=== PATIENT | male | born 1960 | race Caucasian/White ===

== ENCOUNTER → 2017-01-21 | Outpatient (CLI) | payer OTHER ==
--- NOTE | 2017-01-21 15:27 | CT ---
EXAMINATION TYPE: CT chest w con DATE OF EXAM: 01/21/2017 3:06 PM COMPARISON: 10/27/2016 HISTORY: Pt states of follow up for lung nodule. CT DLP: 157.1 mGycm, Automated exposure control for dose reduction was used. CONTRAST: Performed injected with 90 mL of Omnipaque 300. TECHNIQUE: Axial images were obtained at 5 mm thick sections. Reconstructed images are reviewed on [employer] computer in the coronal plane. FINDINGS: Portion of the thyroid visualized is normal. No suspicious lung nodules or focal infiltrates are present. Extensive interstitial changes are present greater in the upper lung ramirez. Thickening of the greater fissure on the right near the posterior medial apex is evident but stable f rom prior study. Previous right middle lobe streak opacity has resolved. The right suprahilar lymph n ode may been interval finding A 1.2 cm right peribronchial lymph node is not excluded. The ascending aorta diameter at the level o f the main pulmonary artery is 3.0 cm. The main pulmonary artery diameter at the bifurcation is 2.5 cm. Coronary artery calcification is present Limited CT sections are obtained through the upper abdomen. Abdomen is essentially unremarkable. IMPRESSIONS: 1. COPD. 2. Stable streak thickening at the superior major fissure on the right. 3. there may be interval development of an enlarged right suprahilar lymph node measuring 1.2 cm.
== END | disposition home or self-care (01) ==
LOC: RADCTMAIN 14:40
PROVIDERS: ATTEND Internal Medicine Critical Care Medicine
DX: J98.4 Other disorders of lung (principal); J44.9 Chronic obstructive pulmonary disease, unspecified
CPT/HCPCS: 71260; Q9967

== ENCOUNTER → 2017-08-26 | Outpatient (CLI) | payer OTHER ==
--- NOTE | 2017-08-26 16:54 | CT ---
EXAMINATION TYPE: CT chest w con DATE OF EXAM: 08/26/2017 COMPARISON: CT chest January 21, 2017 and older studies. PET/CT August 07, 2016. HISTORY: Abnormal findings of lung ramirez CT DLP: 390 mGycm. Automated Exposure Control for Dose Reduction was Utilized. TECHNIQUE: CT scan of the thorax is performed following with IV Contrast, patient injected with 100 ml mL of Omnipaque 300. FINDINGS: LUNGS: Moderate emphysematous change most prominent in the upper lobes is redemonstrated. There is li near scarring or atelectasis in the left lung base just above diaphragm. There is persistent focal th ickening right upper lobe posteriorly abutting the fissure near axial image 24 unchanged from prior s tudies. No suspicious new parenchymal nodule or mass is present bilaterally. No pleural effusion or p neumothorax is seen. MEDIASTINUM: There are no new greater than 1 cm hilar or mediastinal lymph nodes. There are prominent but subcentimeter prevascular, paracarinal, and subcarinal lymph nodes. There is stable 1.4 x 1.0 cm right hilar/peribronchial lymph node unchanged from June 21, 2016 CT. No cardiomegaly or significan t pericardial effusion is seen. There is coronary artery calcification and/or stent in the proximal LAD distribution. OTHER: No additional significant abnormality is seen. IMPRESSION: Moderate emphysematous change without acute pulmonary process. No new suspicious mass or adenopathy is seen.
== END | disposition home or self-care (01) ==
LOC: RADCTMAIN 14:28
PROVIDERS: ATTEND Internal Medicine Critical Care Medicine
DX: J43.9 Emphysema, unspecified (principal)
CPT/HCPCS: 71260; Q9967

== ENCOUNTER → 2024-09-17 | Outpatient (CLI) | payer MEDICARE, OTHER ==
--- NOTE | 2024-09-17 14:31 | CTL ---
EXAMINATION TYPE: CT Low Dose Lung DATE OF EXAM ORDERED: 09/17/2024 COMPARISON: 08/26/2017 CLINICAL INDICATION: Male, 64 years old with history of LDCT CURRENT SMOKER; [facility], Current smoker. 1PP D., Lung cancer screening, History of Smoking/tobacco use. TECHNIQUE: Low dose computed tomography scan was performed through the chest at 1 mm thick sections a nd reconstructed images in multiple planes at 1 mm and [address] DLP: 67.[address] CTDI: 1.8 mGy Automated exposure control for dose reduction was used. CT DIAGNOSTIC QUALITY: Satisfactory FINDINGS: There are marked emphysematous changes within strong upper lobe predominance. There is a small stable 4 to 5 mm nodule in the right upper lobe. No new or suspicious lung mass or n odule seen. There is no airspace consolidation. There is no pleural effusion or pneumothorax. The great vessels of the chest are normal and is no med iastinal, hilar or axillary adenopathy. Limited scanning through the upper abdomen reveals no gross abnormality. No focal osseous lesions are seen. IMPRESSION: 1. Lung RADS category 2 benign findings. Continue routine screening at yearly intervals. 2. marked emphysematous changes with an upper lobe predominance. 3. No acute cardiopulmonary disease. [facility], , 09/17/2024 2:29 PM
== END | disposition home or self-care (01) ==
LOC: RADCTMAIN 13:50
PROVIDERS: ATTEND Internal Medicine Critical Care Medicine
CPT/HCPCS: 71271